=== PATIENT | male | born 1950 | race Two or more races ===

== ENCOUNTER → 2023-10-29 | Emergency (ER) | payer OTHER, BC ==
[~2023-10-29] VITALS: Ht 175.3 cm; Wt 77.6 kg
[~2023-10-29] MED LIST: BUDESONIDE 0.5 MG/2 ML AMPUL.NEB IH ONE; BUDESONIDE 0.5 MG/2 ML AMPUL.NEB IH STA; HYDROCODONE/CHLORPHEN P-STIREX 5 ML ML PO STA; IPRATROPIUM BROMIDE 0.5 MG/2.5 ML AMPUL.NEB IH ONE; IPRATROPIUM BROMIDE 0.5 MG/2.5 ML AMPUL.NEB IH STA; LEVALBUTEROL HCL 1.25 MG/3 ML SOLUTION IH ONE; LEVALBUTEROL HCL 1.25 MG/3 ML SOLUTION IH STA; METHYLPREDNISOLONE SOD SUCC 125 MG VIAL IV STA; METHYLPREDNISOLONE SOD SUCC 125 MG VIAL ONE
[2023-10-29 11:16] LABS: CALCIUM 9.4 mg/dL (8.5-10.1); CREATININE SERUM 1.04 mg/dL (0.70-1.30); GFR 69.62; POTASSIUM 3.92 mEq/L (3.5-5.1)
[2023-10-29 11:22] LABS: HEMOGLOBIN 17.1 g/dL (13-16.00); MEAN CELL VOLUME 92.4 fL (80.0-100.00); MEAN CORPUSCULAR HEMOGLOBIN 32.8 pg (27.00-32.0); MEAN CORPUSCULAR HGB CONC 35.5 g/dl (32.0-36.0); PLATELET COUNT 215 K/uL (150-450); RED CELL DISTRIBUTION WIDTH 14.5 % (11.5-14.5)
[2023-10-29 11:23] LABS: PH,URINE 5.5 (5.0-8.0); URINE BILIRRUBIN Small (NEGATIVE); URINE BLOOD Negative; URINE COLOR Dark Yellow; URINE GLUCOSE Negative (NEGATIVE); URINE KETONE 15 (NEGATIVE); URINE LEUKOCYTE Small; URINE NITRATE Negative; URINE PROTEIN 30 (NEGATIVE)
[2023-10-29 11:26] LABS: URINE BACTERIA 16.3 uL (0.0-1933); URINE CAST 3.05 uL (0.0-1.40); URINE EPITHELIAL CELLS 56.5 uL (0.0-38.8); URINE RBC 23.6 uL (0.0-20.8); URINE WBC 52.4 uL (0.0-23.2)
[2023-10-29 12:03] LABS: URINE APPEARANCE CLOUDY; URINE MUCUS HEAVY
[2023-10-29 12:04] LABS: URINE CRYSTALS FEW /HPF
== END | disposition home or self-care (01) ==
LOC: ER 09:46
PROVIDERS: General Practice
DX: J44.9 Chronic obstructive pulmonary disease, unspecified (principal); Z20.822 Contact with and (suspected) exposure to COVID-19; Z88.0 Allergy status to penicillin